=== PATIENT | female | born 1990 | race Caucasian/White ===

== ENCOUNTER 2017-02-01 14:39 | Emergency (ER) | payer OTHER ==
[~2017-02-01] VITALS: Ht 154.9 cm; Wt 59.1 kg
[2017-02-01] MEDS ORDERED: ACETAMINOPHEN TAB 650MG DOSE (2X325MG) PO ONE (15:15)
[2017-02-01 16:32] VITALS: BP 116/74
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
== END 2017-02-01 16:35 | disposition home or self-care (01) ==
LOC: M ED 14:39
DX: O26.891 Other specified pregnancy related conditions, first trimester (principal); M25.511 Pain in right shoulder; M54.5 Low back pain; O99.341 Other mental disorders complicating pregnancy, first trimester; F41.9 Anxiety disorder, unspecified; F32.9 Major depressive disorder, single episode, unspecified; Z04.3 Encounter for examination and observation following other accident; Z3A.12 12 weeks gestation of pregnancy

== ENCOUNTER 2017-08-11 19:14 | Outpatient (CLI) | payer OTHER | END 2017-08-11 20:30 | disposition home or self-care (01) | LOC: M LDO 19:14 | DX: O47.1 False labor at or after 37 completed weeks of gestation (principal); Z3A.38 38 weeks gestation of pregnancy; J00 Acute nasopharyngitis [common cold]; O99.513 Diseases of the respiratory system complicating pregnancy, third trimester | CPT/HCPCS: 59025 ==

== ENCOUNTER 2017-08-20 07:43 | Inpatient (IN) | payer OTHER ==
[2017-08-20] MEDS ORDERED: OXYTOCIN 30 UNITS IN 0.9% NaCl 500ML IV BAG (J2590) As Ordered (08:45)
[2017-08-20] MEDS: LACTATED RINGER'S 1000 ML IV (08:56)
[2017-08-20] MEDS: PENICILLIN G POTASSIUM IV 5 MU in D5W MINI-BAG PLUS 100 ML IV (08:59)
[2017-08-20] MEDS: PRENATAL VITAMINS CHEWABLE TABLET PO (09:00)
[2017-08-20 09:08] LABS: HEMATOCRIT 34.3 % (36.0-47.0); HEMOGLOBIN 10.8 g/dl (12.0-16.0); MEAN CORPUSCULAR HEMOGLOBIN 25.2 pg (27.0-33.0); MEAN CORPUSCULAR HGB CONC 31.5 g/dl (32.0-36.5); PLATELET COUNT, AUTOMATED 193 10^3/uL (150-450); RED BLOOD COUNT 4.29 10^6/uL (4.00-5.40); WHITE BLOOD COUNT 10.4 10^3/uL (4.0-10.0)
[2017-08-20] MEDS ORDERED: FENTANYL 2MCG/ML ROPIVACAINE 0.2% IN 0.9% NACL 200ML IVBAG As Ordered (09:23)
[2017-08-20] MEDS ORDERED: EPIDURAL/PCA KEYS XX (10:15)
[2017-08-20] MEDS ORDERED: EPIDURAL COMMENT XX (10:15)
[2017-08-20] MEDS ORDERED: REFRIGERATOR IV KEYS XX (10:15)
[2017-08-20] MEDS ORDERED: diphenhydrAMINE INJ 50MG/ML VIAL (J1200) IV (10:15)
[2017-08-20] MEDS ORDERED: FENTANYL/ROPIVACAINE/NACL BAG 200 ML EPIDURAL (10:15)
[2017-08-20] MEDS ORDERED: ePHEDrine SULFATE 25 MG/5 ML(5MG/ML) SYRINGE IV (10:15)
[2017-08-20] MEDS ORDERED: NALOXONE INJ 0.4 MG/1 ML VIAL (J2310) IV (10:15)
[2017-08-20] MEDS ORDERED: ONDANSETRON 4MG/2ML VIAL (J2405) IV (10:15)
[2017-08-20] MEDS ORDERED: LACTATED RINGER'S 1000 ML IV (10:15)
[2017-08-20] MEDS: LR 1,000 ML IV (10:32)
[2017-08-20] MEDS: PENICILLIN G POTASSIUM IV 2.5 MU in APPROPRIATE DILUENT 1 EA IV (12:21)
[2017-08-20 14:04] LABS: CORD GAS ABE V -2.5; CORD GAS HCO3 V 22.7 MEQ/L; CORD GAS O2 SAT V 57.5 %; CORD GAS PCO2 V 40.9 mmHg; CORD GAS PH V 7.362 UNITS; CORD GAS PO2 V 24.6 mmHg; CORD GAS SBC V 21.3 MEQ/L; CORD GAS TCO2 V 23.9 MEQ/L
[2017-08-20 14:06] LABS: CORD GAS ABE A -0.5; CORD GAS HCO3 A 24.3 MEQ/L; CORD GAS O2 SAT A 53.8 %; CORD GAS PCO2 A 40.8 mmHg; CORD GAS PH A 7.393 UNITS; CORD GAS PO2 A 22.2 mmHg; CORD GAS SBC A 22.9 MEQ/L; CORD GAS TCO2 A 25.6 MEQ/L
[2017-08-20] MEDS ORDERED: OXYTOCIN DRIP 30 UNITS in APPROPRIATE DILUENT 1 EA IV (14:09)
[2017-08-20] MEDS ORDERED: ACETAMINOPHEN 500 MG TAB PO (14:15)
[2017-08-20] MEDS ORDERED: OXYTOCIN INJ 10 UNITS/ML VIAL (J2590) IV (14:15)
[2017-08-20] MEDS ORDERED: METHYLERGONOVINE MALEATE 0.2 MG TAB PO (14:15)
[2017-08-20] MEDS ORDERED: DOCUSATE SODIUM 100 MG CAP PO (14:15)
[2017-08-20] MEDS ORDERED: MOM 30ML SUSPENSION UDC PO (14:15)
[2017-08-20] MEDS ORDERED: ANUSOL HC CREAM 30GM TOP (14:15)
[2017-08-20] MEDS ORDERED: DIBUCAINE 1% OINTMENT 30GM TOP (14:15)
[2017-08-20] MEDS ORDERED: OXYTOCIN INJ 10 UNITS/ML VIAL (J2590) As Ordered (18:17)
[2017-08-21] MEDS: IBUPROFEN 800 MG TAB PO (03:42)
[2017-08-21 07:04] LABS: HEMATOCRIT 29.5 % (36.0-47.0); HEMOGLOBIN 8.9 g/dl (12.0-16.0); MEAN CORPUSCULAR HEMOGLOBIN 24.3 pg (27.0-33.0); MEAN CORPUSCULAR HGB CONC 30.2 g/dl (32.0-36.5); MEAN CORPUSCULAR VOLUME 80.6 fl (80.0-96.0); PLATELET COUNT, AUTOMATED 158 10^3/uL (150-450); RED BLOOD COUNT 3.66 10^6/uL (4.00-5.40); RED CELL DISTRIBUTION WIDTH 15.9 % (11.5-14.5); WHITE BLOOD COUNT 12.7 10^3/uL (4.0-10.0)
[2017-08-21] MEDS: RHOGAM 300 MCG (1500 IU) INJ (J2790) IM (07:21)
[2017-08-21] MEDS: MEASLES,MUMPS,RUBELLA VACCINE INJ (MMR-II) (90707) SC (07:22)
[2017-08-21] MEDS: PRENATAL VITAMINS CHEWABLE TABLET PO (09:26)
[2017-08-22] MEDS: PRENATAL VITAMINS CHEWABLE TABLET PO (08:59)
== END 2017-08-22 11:55 | disposition home or self-care (01) | DRG 767 ==
LOC: M LDO 07:43 → M LDI 08:40 → M OBS 16:38
PROVIDERS: Obstetrics & Gynecology
PROC: 10D17Z9 Manual Extraction of Products of Conception, Retained, Via Natural or Artificial Opening (ICD-10-PCS; principal; 2017-08-20)
PROC: 10E0XZZ Delivery of Products of Conception, External Approach (ICD-10-PCS; 2017-08-20)
DX: O48.0 Post-term pregnancy (principal); Z37.0 Single live birth; Z3A.40 40 weeks gestation of pregnancy; O99.820 Streptococcus B carrier state complicating pregnancy; O69.89X0 Labor and delivery complicated by other cord complications, not applicable or unspecified